=== PATIENT | male | born 1950 | race Caucasian/White ===

== ENCOUNTER 2018-06-26 16:12 | Emergency (ER) | payer MEDICARE, OTHER ==
--- NOTE | 2018-06-26 16:33 | ED Physician Documentation ---
PD HPI URI - Stated complaint Stated Complaint: HEADACHE/THROAT PX/LUMP BY LF EAR - Chief complaint Chief Complaint: Heent - History obtained from History obtained from: Patient - History of Present Illness Timing - onset: How many days ago (10) Timing duration: Days (has had URI symptoms for about 10 days, seen by Dr. Medeiros covering for Dr. Valdivia 6 days ago and Rx Zpack. URI symptoms improving but having pain right face around eye and up to forehead. Significant pain and hurts to touch. No pain past midline to the left.) Timing details: Gradual onset Associated symptoms: Nasal congestion, Sinus pain, Swollen nodes (left preauricular the past 2-3 days), Dry cough. No: Fever, Ear pain Contributing factors: No: Sick contact, Travel, Immunocompromised Similar symptoms before: Has not had sx before Recently seen: Clinic Review of Systems Constitutional: reports: Myalgias. denies: Fever Eyes: denies: Loss of vision, Decreased vision, Photophobia, Irritation Ears: denies: Ear pain, Drainage/discharge Nose: reports: Congestion. denies: Rhinorrhea / runny nose Throat: denies: Sore throat Cardiac: denies: Chest pain / pressure Respiratory: reports: Cough GI: denies: Abdominal Pain, Nausea, Vomiting Skin: denies: Rash PD PAST MEDICAL HISTORY - Past Medical History Cardiovascular: Hypertension Respiratory: None Endocrine/Autoimmune: None GI: None : None HEENT: None Psych: None Musculoskeletal: Osteoarthritis Derm: None - Past Surgical History Past Surgical History: Yes General: Other - Present Medications Home Medications: Ambulatory Orders Medication Instructions Recorded Confirmed Aspirin Chewable [St Sage 81 mg PO DAILY 08/04/13 02/14/15 Aspirin] Testosterone [Androgel] 2.5 gm TD DAILY 08/04/13 02/14/15 Felodipine [Felodipine ER] 10 mg PO DAILY 02/14/15 02/14/15 Simvastatin 40 mg PO DAILY 02/14/15 02/14/15 Acyclovir 800 mg PO 5XD #30 tablet 06/26/18 Cetirizine [ZyrTEC] 10 mg PO DAILY #20 tablet 06/26/18 Dexamethasone [Decadron] 4 mg PO DAILY #5 tablet 06/26/18 HYDROcod/ACETAM 5/325 [[place] 5/325] 1 tab PO Q6H PRN #20 tablet 06/26/18 - Allergies Allergies/Adverse Reactions: Allergies Allergy/AdvReac Type Severity Reaction Status Date / Time No Known Drug Allergies Allergy Verified 06/26/18 16:28 - Social History Does the pt smoke?: No Smoking Status: Never smoker Does the pt drink ETOH?: Yes Does the pt have substance abuse?: No - Immunizations Immunizations are current?: No Immunizations: Other immun not current PD ED PE NORMAL - Vitals Vital signs reviewed: Yes - General General: Alert and oriented X 3, Well developed/nourished, Other (appears uncomfortable due to facial pain) - HEENT HEENT: Ears normal, Pharynx benign, Other (no sinus tenderness to percussion) - Neck Neck: Supple, no meningeal sign, No adenopathy - Cardiac Cardiac: RRR, No murmur - Respiratory Respiratory: Clear bilaterally - Derm Derm: Normal color, Warm and dry - Neuro Neuro: Alert and oriented X 3, No motor deficit, Normal speech Results - Vitals Vitals: Oxygen O2 Source Room air PD MEDICAL DECISION MAKING - ED course Complexity details: considered differential (has pain and skin sensitivity demarcated at middle of forehead and around eye, only on right side. Marked pain and it is not just sinus area. I think he is having early shingles symptoms following the recent URI. ), d/w patient Departure - Departure Disposition: 01 Home, Self Care Clinical Impression: Right facial pain Sinusitis Qualifiers: Sinusitis location: maxillary Chronicity: acute Recurrence: non-recurrent Qualified Code(s): J01.00 - Acute maxillary sinusitis, unspecified Shingles Qualifiers: Herpes zoster complications: without complications Qualified Code(s): B02.9 - Zoster without complications Condition: Stable Record reviewed to determine appropriate education?: Yes Instructions: ED Shingles Follow-Up: Martin King MD [Primary Care Provider] - Prescriptions: Acyclovir 800 mg PO 5XD #30 tablet Cetirizine [ZyrTEC] 10 mg PO DAILY #20 tablet Dexamethasone [Decadron] 4 mg PO DAILY #5 tablet HYDROcod/ACETAM 5/325 [[place] 5/325] 1 tab PO Q6H PRN #20 tablet PRN Reason: Pain Comments: There may be some sinus inflammation still causing some of your symptoms. However the facial pain really sounds like early shingles and we will treated with acyclovir antiviral as well as an anti-inflammatory and pain medicine. Follow-up with your primary care if not improving over the next few days. You likely will develop a little bit of rash in the face and forehead area. Discharge Date/Time: 06/26/18 17:19
[2018-06-26] MEDS ORDERED: CETIRIZINE 10 MG TABLET PO STA (17:06)
[2018-06-26] MEDS ORDERED: DEXAMETHASONE 10 MG/ML VIAL PO STA (17:06)
[2018-06-26] MEDS ORDERED: ACYCLOVIR 200 MG CAPSULE PO STA (17:06)
[2018-06-26 17:20] VITALS: BP 138/88
== END 2018-06-26 17:19 | disposition home or self-care (01) ==
LOC: ED 16:12
DX: R51 Headache (principal); J01.00 Acute maxillary sinusitis, unspecified; B02.9 Zoster without complications; I10 Essential (primary) hypertension
CPT/HCPCS: 99283; A9270

== ENCOUNTER 2019-05-18 21:58 | Emergency (ER) | payer MEDICARE, OTHER ==
[2019-05-18] MEDS ORDERED: ONDANSETRON 4 MG/2 ML VIAL IVP STA (22:29)
[2019-05-18] MEDS ORDERED: MORPHINE 2 MG/ML CARPUJECT IVP STA (22:29)
--- NOTE | 2019-05-18 22:31 | ED Physician Documentation ---
<Kamila Londono - Last Filed: 05/19/19 00:20> PD HPI ABD PAIN - Stated complaint Stated Complaint: ABD PX/FEVER - Chief complaint Chief Complaint: Abd Pain PD PAST MEDICAL HISTORY - Present Medications Home Medications: Ambulatory Orders Medication Instructions Recorded Confirmed Aspirin Chewable [St Sage 81 mg PO DAILY 08/04/13 02/14/15 Aspirin] Testosterone [Androgel] 2.5 gm TD DAILY 08/04/13 02/14/15 Felodipine [Felodipine ER] 10 mg PO DAILY 02/14/15 02/14/15 Simvastatin 40 mg PO DAILY 02/14/15 02/14/15 Acyclovir 800 mg PO 5XD #30 tablet 06/26/18 Cetirizine [ZyrTEC] 10 mg PO DAILY #20 tablet 06/26/18 HYDROcod/ACETAM 5/325 [[place] 5/325] 1 tab PO Q6H PRN #20 tablet 06/26/18 dexAMETHasone [Decadron] 4 mg PO DAILY #5 tablet 06/26/18 Amoxicillin/Potassium Clav 2 each PO BID #20 tab.er.12h 05/19/19 [Augmentin Xr 1,000-62.5 Tab] - Allergies Allergies/Adverse Reactions: Allergies Allergy/AdvReac Type Severity Reaction Status Date / Time No Known Drug Allergies Allergy Verified 06/26/18 16:28 PD MEDICAL DECISION MAKING - ED course Complexity details: reviewed results, d/w patient, d/w family, d/w customer experience consultant ED course: Patient's white blood count cell count is 15. CT scan showed uncomplicated diverticulitis and this was discussed with him. He was feeling better after pain medication. He was given Zosyn IV. Plan D/C On Augmentin. The patient has oxycodone that he can use for pain at home already. Of encouraged him to use naproxen twice a day and he also has MiraLAX. Follow-up with his primary care provider for reevaluation early next week particularly if the pain is not improving. Departure - Departure Disposition: 01 Home, Self Care Clinical Impression: Diverticulitis of gastrointestinal tract Condition: Good Instructions: ED Diverticulitis Follow-Up: Martin King MD [Primary Care Provider] - Prescriptions: Amoxicillin/Potassium Clav [Augmentin Xr 1,000-62.5 Tab] 2 each PO BID #20 tab.er.12h Comments: Take the antibiotics as prescribed twice a day for 10 days. I would highly recommend that you take a probiotic while you are on the antibiotic and for 2 weeks after. This can be purchased [id number] at the pharmacy. Use the MiraLAX if you feel constipated. Take Aleve 1 tablet [id number] twice a day with food for the next 7 to 10 days. You have oxycodone at home that you can use if needed for severe pain. Follow-up with your primary care provider next week for reevaluation or return if you have increasing pain that is not controlled with the oxycodone, you are vomiting and cannot keep anything down, you develop fever or other problems arise. Discharge Date/Time: 05/19/19 00:41 <Lewis Gardner - Last Filed: 05/19/19 08:20> PD HPI ABD PAIN - History obtained from History obtained from: Patient - History of Present Illness Timing - onset: Other (69-year-old gentleman, relatively healthy. No history of abdominal surgeries. Over the last week he has had smaller stool caliber and thicker stools than normal. Dark but not black. Over the last day has developed left lower quadrant pain and some chills with a low-grade fever to 99. He vacillates as to our whether or not this is similar to prior episode of diverticulitis in 2013.) Review of Systems Ten Systems: 10 systems reviewed and negative Constitutional: reports: Chills. denies: Fever GI: reports: Abdominal Pain, Nausea, Constipation. denies: Vomiting, Diarrhea, Hematemesis, Bloody / black stool : denies: Dysuria, Frequency PD PAST MEDICAL HISTORY - Past Medical History Past Medical History: Yes Cardiovascular: Hypertension Respiratory: None Neuro: None Endocrine/Autoimmune: None GI: None : None HEENT: None Psych: None Musculoskeletal: Osteoarthritis Derm: None - Past Surgical History Past Surgical History: Yes General: Other - Social History Does the pt smoke?: No Smoking Status: Never smoker Does the pt drink ETOH?: Yes Does the pt have substance abuse?: No - Family History Family history: reports: Non contributory - Immunizations Immunizations are current?: No Immunizations: Other immun not current - POLST Patient has POLST: No PD ED PE NORMAL - Vitals Vital signs reviewed: Yes - General General: Alert and oriented X 3, No acute distress - HEENT HEENT: PERRL, EOMI - Neck Neck: Supple, no meningeal sign, No bony TTP - Cardiac Cardiac: RRR, No murmur - Respiratory Respiratory: No respiratory distress, Clear bilaterally - Abdomen Abdomen: Other (Diminished but not absent bowel tones, soft without surgical signs, focally tender in the left lower quadrant.) - Rectal Rectal: Other (No fecal impaction) - Back Back: No CVA TTP, No spinal TTP - Derm Derm: Normal color, Warm and dry - Extremities Extremities: No edema, No calf tenderness / cord - Neuro Neuro: Alert and oriented X 3, Normal speech - Psych Psych: Normal mood, Normal affect Results - Vitals Vitals: Vital Signs - 24 hr 05/18/19 05/18/19 05/19/19 22:07 23:07 00:07 Temperature 37.0 C Heart Rate 85 75 66 Respiratory 17 17 17 Rate Blood Pressure 162/91 H 139/92 H 146/89 H O2 Saturation 95 94 94 05/19/19 05/19/19 00:23 00:40 Temperature Heart Rate 66 66 Respiratory 17 17 Rate Blood Pressure O2 Saturation 94 94 Oxygen O2 Source Room air - Labs Labs: Laboratory Tests 05/18/19 05/18/19 05/18/19 22:16 22:16 22:18 WBC 15.3 H RBC 6.23 H Hgb 17.4 Hct 52.7 H MCV 84.6 MCH 27.9 MCHC 33.0 RDW 13.0 Plt Count 274 MPV 10.0 Neut # (Auto) 11.8 H Lymph # (Auto) 1.5 Mifflin # (Auto) 1.4 H Eos # (Auto) 0.4 Baso # (Auto) 0.1 Absolute Nucleated RBC 0.00 Nucleated RBC % 0.0 Sodium 138 Potassium 3.6 Chloride 101 Carbon Dioxide 26 Anion Gap 11.0 BUN 12 Creatinine 0.9 Estimated GFR (MDRD) 84 L Glucose 103 H Calcium 9.4 Total Bilirubin 0.9 AST 21 ALT 20 Alkaline Phosphatase 84 Total Protein 7.9 Albumin 4.3 Globulin 3.6 Albumin/Globulin Ratio 1.2 Lipase 36 Urine Color YELLOW Urine Clarity CLEAR Urine pH 7.0 Ur Specific Watson 1.010 Urine Protein 30 H Urine Glucose (UA) NEGATIVE Urine Ketones NEGATIVE Urine Occult Blood TRACE-LYSE Urine Nitrite NEGATIVE Urine Bilirubin NEGATIVE Urine Urobilinogen 0.2 (NORMAL) Ur Leukocyte Esterase NEGATIVE Urine RBC 0-5 Urine WBC 0-3 Ur Squamous Epith Cells RARE Squamous Urine Bacteria None Seen Ur Microscopic Review INDICATED Urine Culture Comments NOT INDICATED PD MEDICAL DECISION MAKING - ED course Complexity details: other (Pt with livelky diverticulitis, given morphin e/zofran. Care to Dr Londono at [facility] [address] result.)
[2019-05-18 22:35] LABS: BASOPHILS # (AUTO) 0.1 10^3/uL (0.0-0.1); BASOPHILS % (AUTO) 0.7 %; EOSINOPHILS # (AUTO) 0.4 10^3/uL (0.0-0.7); EOSINOPHILS % (AUTO) 2.4 %; HGB - HEMOGLOBIN 17.4 g/dL (14.0-18.0); LYMPHOCYTES # (AUTO) 1.5 10^3/uL (1.5-3.5); LYMPHOCYTES % (AUTO) 9.8 %; MEAN CORPUSCULAR HEMOGLOBIN 27.9 pg (27.0-31.0); MEAN CORPUSCULAR VOLUME 84.6 fL (80.0-94.0); MONOCYTES # (AUTO) 1.4 10^3/uL (0.0-1.0); MONOCYTES % (AUTO) 9.3 %; NEUTROPHILS # (AUTO) 11.8 10^3/uL (1.5-6.6); NEUTROPHILS % (AUTO) 77.1 %; PLT - PLATELET COUNT 274 10^3/uL (130-450); RED BLOOD COUNT 6.23 10^6/uL (4.70-6.10); WHITE BLOOD COUNT 15.3 x10^3/uL (4.8-10.8)
[2019-05-18] MEDS ORDERED: IOVERSOL 320 100 ML VIAL IVP ONE ×3 (22:42→22:58)
[2019-05-18 22:43] LABS: ALBUMIN 4.3 g/dL (3.2-5.5); ALBUMIN/GLOBULIN RATIO 1.2 (1.0-2.2); BILIRUBIN,TOTAL 0.9 mg/dL (0.2-1.0); CALCIUM 9.4 mg/dL (8.5-10.3); CREATININE 0.9 mg/dL (0.6-1.2); TOTAL PROTEIN 7.9 g/dL (6.7-8.2)
[2019-05-18 22:58] LABS: BILIRUBIN,URINE NEGATIVE (NEGATIVE); GLUCOSE, URINE (UA) NEGATIVE (NEGATIVE); KETONES,URINE (UA) NEGATIVE (NEGATIVE); LEUKOCYTE ESTERASE, URINE NEGATIVE (NEGATIVE); NITRITE,URINE NEGATIVE (NEGATIVE); OCCULT BLOOD,URINE TRACE-LYSE (NEGATIVE); PROTEIN,URINE 30 mg/dL (NEGATIVE); UROBILINOGEN,URINE 0.2 (NORMAL) E.U./dL (NORMAL)
[2019-05-18 23:25] LABS: CLARITY,URINE CLEAR (CLEAR)
[2019-05-18 23:27] LABS: BACTERIA,URINE None Seen /HPF (None Seen); RBC,URINE 0-5 /HPF (0-5); SQUAMOUS EPITHELIAL CELL,UR RARE Squamous (<= Few)
--- NOTE | 2019-05-18 23:50 | CT Report ---
Reason: IV only, LLQ pain Procedure Date: 05/18/2019 Accession Number: [id number] / [id number] Procedure: CT - Abdomen/Pelvis W CPT Code: FULL RESULT: EXAM: CT ABDOMEN AND PELVIS EXAM DATE: 05/18/2019 11:00 PM CLINICAL HISTORY: Left lower quadrant pain. COMPARISONS: ABDOMEN/PELVIS W/ 09/15/2013 10:13 AM. TECHNIQUE: Routine helical CT imaging was performed through the abdomen and pelvis. IV contrast: Yes. Enteric contrast: No. Reconstructions: Coronal and sagittal. In accordance with CT protocol optimization, one or more of the following dose reduction techniques were utilized for this exam: automated exposure control, adjustment of mA and/or KV based on patient size, or use of iterative reconstructive technique. FINDINGS: Lung Bases: Unremarkable. Liver: Scattered cysts. No suspicious masses. Gallbladder/Bile Ducts: Unremarkable. Spleen: Unremarkable. Pancreas: Unremarkable. Adrenal Glands: Unremarkable. Kidneys: Small right renal cyst. No suspicious masses or hydronephrosis. Peritoneal Cavity/Bowel: Proximal sigmoid colon diverticulitis with mild to moderate surrounding inflammatory changes. No gross perforation or abscess seen. Bowel otherwise appears unremarkable. Pelvic Organs: Mildly enlarged prostate. The bladder appears within normal limits. Vasculature: No aneurysms or other significant abnormality. Bones: No significant abnormality. Other: None. IMPRESSION: 1. Proximal sigmoid colon mild to moderate diverticulitis without apparent complication. 2. Mildly enlarged prostate. [facility] The call report notification system was initiated by Dr. Alexandr Rahman at 11:46 PM on 05/18/2019. The above call report findings were discussed with ED Physician by Dr. Alexandr Rahman at 11:50 PM on 05/18/2019.
[2019-05-18] MEDS ORDERED: PIPERACILLIN/TAZOBACTAM 3.375 GM in SODIUM CHLORIDE 0.9% MINIBAG 100 ML IV STA (23:56)
[2019-05-19 00:09] VITALS: BP 146/89
== END 2019-05-19 00:41 | disposition home or self-care (01) ==
LOC: ED 21:58
DX: K57.32 Diverticulitis of large intestine without perforation or abscess without bleeding (principal); I10 Essential (primary) hypertension; Z79.82 Long term (current) use of aspirin
CPT/HCPCS: 36415; 74177; 80053; 81001; 83690; 85025; 96365; 96375; 99284; Q9967; 81003; 87086

== ENCOUNTER 2020-12-04 18:22 | Outpatient (CLI) | payer MEDICARE, OTHER | END 2020-12-04 18:23 | disposition home or self-care (01) | LOC: COV 18:22 | PROVIDERS: ATTEND Family Medicine | DX: R06.02 Shortness of breath (principal); M79.10 Myalgia, unspecified site; R53.83 Other fatigue; R43.9 Unspecified disturbances of smell and taste; R09.81 Nasal congestion; J34.89 Other specified disorders of nose and nasal sinuses; Z20.822 Contact with and (suspected) exposure to COVID-19 ==

== ENCOUNTER 2021-05-28 13:27 | Outpatient (CLI) | payer MEDICARE, OTHER ==
--- NOTE | 2021-05-28 14:22 | SLEEP CARE CONSULTATION ---
Information from patient questionnaire entered by Alexa Short. I have reviewed and concur with the information entered by Alexa Short. This document represents the service I personally performed and the decisions made by me, Tere [place] ARNP. History of Present Illness Service Date and Time: 05/28/2021 1327 Reason for Visit: New patient Chief Complaint: reports: Insomnia, Unrefreshed sleep, Snoring, Excessive daytime sleepiness, Fatigue, Frequent awakenings at night, Other (prostate issues) Date of Onset: several months Usual bedtime: 2200 Time it takes to fall asleep: 2+ hours Snores at night: Yes Observed to quit breathing while asleep: No Sleeps alone due to snoring: Yes Number of times waking at night: 4-5 Reasons for waking at night: reports: Bathroom, Other (stuffy nose). denies: Snoring, Gasping for air Toss, Turn, or Twitch while sleeping: Yes Recalls having dreams: No Feels refreshed in the morning: No Morning headache: No Sleepy or fatigued during the day: Yes Ever fallen asleep while driving: No Takes day naps: Yes (usually in afternoon for about an hour daily) Dreams during day naps: No Prior sleep studies: No Additional HPI information: I had the pleasure of seeing VANESSA VOSS today regarding the possibility of him having a sleep disorder. His current complaints are excessive daytime sleepiness, fatigue, frequent night awakenings, insomnia, snoring and prostates issues causing frequent night urination. He states he cannot fall asleep for about an hour and then he will wake up several times a night. He has difficulty falling back to sleep when awakened due to ruminating thoughts. He states he has lots of anxiety/stress due to family situation where his daughter has drug issues and he/his have guardianship of two grandchildren. His also has medical issues. He will think on these issues and have a hard time falling back to sleep. He has to go to the bathroom often at night and his urologist has placed him on medication with minimal improvement of this so far. He was referred here for further evaluation due to sleeping issues. He states he rarely dreams but does remember some of them. He has a history of PTSD with night terrors and night sweats that was improved by light emitting therapy/hypnotherapy in the past. - Parasomnia Symptoms Ever been unable to move upon waking from sleep: Yes Walks in sleep: No Talks in sleep: No Ever acted out dreams in sleep: No Ever felt weak in the knees when startled or emotional: No Bothered by creepy, crawly, restless sensations in legs: No Problems with memory or concentration: Yes (both; thinks it is due to old age) Subjective Initial Wallace Sleepiness Scale score: 13 (in 2020) Past Medical History Past Medical History: reports: Hypertension, Arthritis, Depression, Other (PTSD, COPD) Social History The patient's occupation is a RE. Patient is and lives in [place]. Have you smoked in the past 12 months: No Cigarettes per day (20/pack): 20 Quit date: 1998 Alcohol use: Yes Alcohol amount and frequency: 1-2, 2x/week Caffeine use: Yes Caffeine amount and frequency: 2 cups/am Family History Family history of sleep disordered breathing: Yes Family Hx Sleep Apnea: Father: Snoring (son and daughter), Other: Snoring Allergies and Home Medications Drug allergies reviewed: Yes (NKDA) Home medication list reviewed: Yes Allergy and home medication list: Felodipine Simvastatin baby aspirin, every other day Tamsulosin Advair Ventolin Multivitamins CoQ 10 Review of Systems Weight gain over past 5 years: 20 Weight loss over past 5 years: 5 Cardiovascular: reports: high blood pressure Respiratory: reports: shortness of breath, sputum production Gastrointestinal: reports: heartburn Urinary: reports: urgency Psychiatric: reports: anxiety, depression Ear/Nose/Throat: reports: nasal congestion, sinus problems, dry mouth/throat, injury to nose (broken twice), wisdom teeth removed. denies: tonsillectomy Endocrine: reports: sluggishness, increased urination Musculoskeletal: reports: joint pain, neck pain, back pain, muscle pain or cramping, mobility problems, other (left knee) Immunologic: reports: sneezing Physical Exam Blood Pressure: 136/88 Cuff size: wrist Heart Rate: 91 O2 Saturation: 98 Height: 6 ft 1 in Weight: 248 lb Body Mass Index: 32.7 BMI Classification: Obese Neck circumference: 18.5 (inches) Mouth and throat: narrow oropharynx Soft palate: long Hard palate: arched Uvula: normal Uvula visualization: 100% Mallampati Class I Tongue: enlarged in size with teeth delgadillo on lateral edges Tonsils: 1+ Neck: normal w/o lymphadenopathy or thyromegaly Heart: regular rate and rhythm, murmur Lungs: clear bilaterally Impression and Plan 1. Suspected Obstructive Sleep Apnea-Hypopnea Syndrome, as suggested by a history of loud and irregular snoring, observed cessation of breath while asleep, frequent awakening during the night, unrefreshed sleep, and excessive daytime sleepiness. Narrow oropharynx and obesity are common predisposing factors for obstructive sleep apnea-hypopnea syndrome. I recommend proceeding to polysomnography to confirm the diagnosis and to assess severity. If the patient has significant sleep disordered breathing, a manual CPAP titration study will also be performed to find the optimal treatment pressure. I informed the patient of what the sleep studies involve and after some discussion, obtained agreement to proceed. The pathophysiology of obstructive sleep apnea-hypopnea syndrome was discussed with the patient and health risks of cardiovascular and cerebrovascular disease if not treated. AAS brochure for obstructive sleep apnea-hypopnea syndrome given and reviewed. Risks of drowsy driving discussed in detail and patient advised to avoid long distance driving and to gum puller at the first sign of drowsiness. Patient agreed to plan. * Schedule polysomnography +- manual CPAP titration study and return in 1-2 weeks after the study to discuss result and initiate therapy. * Avoid long distance driving or driving when feeling sleepy. * Avoid alcohol, sedative and muscle relaxant around bedtime. * Attempt to lose weight. * Review instructions provided by trained office staff on how to prepare for the sleep study. * Return for follow-up after sleep study completed. Counseling Topics: Weight loss health impact Visit Type: In Office Time Spent with Patient (minutes): 40 Provider Statement: I spent 100% of the Face to Face Visit with the patient with greater than 50% spent counseling the patient and coordination of care.
[2021-05-28 14:23] VITALS: BP 136/88
== END 2021-05-28 13:28 | disposition home or self-care (01) ==
LOC: SC 13:27
PROVIDERS: ATTEND Nurse Practitioner Family
DX: G47.10 Hypersomnia, unspecified (principal); R06.81 Apnea, not elsewhere classified; R06.83 Snoring; E66.9 Obesity, unspecified; Z68.32 Body mass index [BMI] 32.0-32.9, adult
CPT/HCPCS: 99203; G0463; 99212

== ENCOUNTER 2023-09-04 08:55 | Outpatient (CLI) | payer MEDICARE, OTHER ==
[2023-09-04 12:09] LABS: BASOPHILS # (AUTO) 0.1 10^3/uL (0.0-0.1); EOSINOPHILS # (AUTO) 0.3 10^3/uL (0.0-0.7); EOSINOPHILS % (AUTO) 5.1 %; HCT - HEMATOCRIT 40.5 % (42.0-52.0); LYMPHOCYTES # (AUTO) 1.3 10^3/uL (1.5-3.5); LYMPHOCYTES % (AUTO) 21.3 %; MEAN CORPUSCULAR HGB CONC 32.1 g/dL (32.0-36.0); MEAN CORPUSCULAR VOLUME 87.3 fL (80.0-94.0); MEAN PLATELET VOLUME 10.2 fL (7.4-11.4); MONOCYTES # (AUTO) 0.6 10^3/uL (0.0-1.0); MONOCYTES % (AUTO) 10.1 %; NEUTROPHILS # (AUTO) 3.8 10^3/uL (1.5-6.6); NEUTROPHILS % (AUTO) 62.2 %; PLT - PLATELET COUNT 285 10^3/uL (130-450); RED BLOOD COUNT 4.64 10^6/uL (4.70-6.10); RED CELL DISTRIBUTION WIDTH 12.9 % (12.0-15.0); WHITE BLOOD COUNT 6.1 x10^3/uL (4.8-10.8)
[2023-09-04 12:48] LABS: ALBUMIN 4.3 g/dL (3.2-5.5); ALBUMIN/GLOBULIN RATIO 1.6 (1.0-2.2); ALKALINE PHOSPHATASE 71 IU/L (42-121); ALT ALANINE AMINOTRANSFERASE 12 IU/L (10-60); AST ASPARTATE AMINOTRANSFERASE 16 IU/L (10-42); BILIRUBIN,TOTAL 0.7 mg/dL (0.2-1.0); BUN - BLOOD UREA NITROGEN 15 mg/dL (6-20); CALCIUM 9.4 mg/dL (8.5-10.3); CARBON DIOXIDE - CO2 30 mmol/L (21-32); CHLORIDE 104 mmol/L (101-111); CHOL/HDL RATIO 4.1 (<5.0); CHOLESTEROL 206 mg/dL; CREATININE 0.9 mg/dL (0.6-1.3); GFR - MDRD 83 (>89); GLUCOSE 99 mg/dL (74-104); HDL CHOLESTEROL 50 mg/dL; LDL CHOLESTEROL,CALCULATED 137 mg/dL; LDL/HDL RATIO 2.7 (<3.6); POTASSIUM 4.1 mmol/L (3.5-4.5); SODIUM 140 mmol/L (135-145); TRIGLYCERIDES 96 mg/dL (48-352); VLDL CHOLESTEROL 19 mg/dL
[2023-09-04 12:53] LABS: THYROID STIMULATING HORMONE 2.35 uIU/mL (0.34-5.60)
== END 2023-09-04 08:56 | disposition home or self-care (01) ==
LOC: LAB.N 08:55
PROVIDERS: ATTEND Family Medicine
DX: I10 Essential (primary) hypertension (principal); E66.9 Obesity, unspecified; B02.23 Postherpetic polyneuropathy; E78.5 Hyperlipidemia, unspecified; Z79.899 Other long term (current) drug therapy; R53.83 Other fatigue; R60.9 Edema, unspecified
CPT/HCPCS: 36415; 80053; 80061; 82607; 82746; 83721; 83735; 84153; 84439; 84443; 85025